=== PATIENT | female | born 1935 | race Hispanic/Latino ===

== ENCOUNTER 2018-04-01 13:15 | Emergency (ER) | payer OTHER ==
[2018-04-01] MEDS ORDERED: TRAMADOL HCL 50 MG TABLET ONE (13:54)
[2018-04-01] MEDS ORDERED: METHYLPREDNISOLONE SOD SUCC 40MG/ML 1ML ONE (13:54)
== END 2018-04-01 14:12 | disposition home or self-care (01) ==
LOC: EDBD 13:15 → EDH 13:15
DX: M54.5 Low back pain (principal); I10 Essential (primary) hypertension; M81.0 Age-related osteoporosis without current pathological fracture
CPT/HCPCS: 96372; 99283; J2920